=== PATIENT | female | born 1995 | race Caucasian/White ===

== ENCOUNTER 2017-01-19 08:00 | Outpatient (CLI) | payer MEDICAID | END 2017-01-19 08:01 | disposition home or self-care (01) | LOC: LAB.R 08:00 | PROVIDERS: ATTEND Obstetrics & Gynecology | DX: Z11.3 Encounter for screening for infections with a predominantly sexual mode of transmission (principal) | CPT/HCPCS: 87491; 87591 ==

== ENCOUNTER 2017-02-20 20:03 | Outpatient (CLI) | payer MEDICAID ==
--- NOTE | 2017-02-20 21:23 | Ultrasound Preliminary Report ---
Exam: US OB FIRST TRIMESTER IMPRESSION: 1. Single viable intrauterine at EGA 11 weeks 4 days with CHERELLE 09/07/2018 based on crown-rum p length. No acute findings are seen. RADIA The call report notification system was initiated by Dr. Tonya Aponte at 21:19 hrs on 02/20/17. The above findings were discussed with Dr Hugo Dr by Dr. Tonya Aponte at 21:21 hrs on 02/20/17. SITE ID: [id number]
--- NOTE | 2017-02-20 21:34 | Ultrasound Report ---
EXAM: FIRST TRIMESTER OBSTETRIC ULTRASOUND (Less than 11 weeks) EXAM DATE: 02/20/2017 08:51 PM. CLINICAL HISTORY: with inconclusive viability. Maternal care for abnormalities of fet al heart rate. HCG unknown. LMP: 11/19/2016, patient unsure about LMP, EGA 13 weeks 2 days, CHERELLE 08/26/2017. COMPARISONS: None. TECHNIQUE: Transabdominal and transvaginal ultrasound examination with static image documentation. FINDINGS: Gestational Sac: Single intrauterine. Mean gestational sac diameter: 60 mm = 12 weeks 1 day, CHERELLE . Embryo: CRL (crown-rump length) 49 mm = 11 weeks 4 days, CHERELLE 09/07/2017. Cardiac activity: 164 beats per minute. Yolk sac: 4 mm. Amniotic fluid: Subjectively within normal limits. Early placenta: Fundal placental location. Other: No perigestational fluid collection demonstrated. MATERNAL STRUCTURES: Uterus: Anteverted. Unremarkable. Cervix: Closed. Right Ovary/Adnexa: Unremarkable. The ovary measures 3.7 x 2.3 x 4 cm, volume 17.9 cc. Left Ovary/Adnexa: Unremarkable. The ovary measures 2.6 x 1.1 cm, not well seen. Free Fluid: None. IMPRESSION: 1. Single viable intrauterine at EGA 11 weeks 4 days with CHERELLE 09/07/2018 based on crown-rum p length. No acute findings are seen. DAVON The call report notification system was initiated by Dr. Tonya Aponte at 21:19 hrs on 02/20/17. The above findings were discussed with Dr Arias by Dr. Tonya Aponte at 21:21 hrs on 02/20/17. Referring Provider Line: [phone] SITE ID: [id number]
== END 2017-02-20 20:04 | disposition home or self-care (01) ==
LOC: DI 20:03
PROVIDERS: ATTEND Obstetrics & Gynecology
DX: O36.8310 Maternal care for abnormalities of the fetal heart rate or rhythm, first trimester, not applicable or unspecified (principal); Z3A.11 11 weeks gestation of pregnancy
CPT/HCPCS: 76801

== ENCOUNTER 2017-04-24 07:46 | Outpatient (CLI) | payer MEDICAID ==
--- NOTE | 2017-04-24 11:14 | Ultrasound Report ---
ANATOMIC SURVEY: 04/24/2017 CLINICAL INDICATION: anatomic survey. COMPARISON: OB Ultrasound 02/20/2017 TECHNIQUE: OB ultrasound anatomic survey. FINDINGS: Single viable intrauterine . LMP 12/01/2016. Gestational age by LMP 20 weeks 4 days, with estimated date of delivery 2017. biometry. BPD 4.9 cm 20 weeks 5 days. Head circumference 18.3 cm 20 weeks 5 days. Abdominal circumference 15.3 cm 20 weeks 3 days. Femur length 3.5 cm, 21 weeks 0 days. Estimated weight 370 grams. LMP percentile 51%. The following structures are visualized and have a normal appearance. Choroid plexus, lateral ventricles, midline falx, CSP, cisterna magna, cerebellum, nasal bone, coronal face, nose, lips, open hands, cardiac situs, 4 chamber heart, ventricular outflow tracts, stomach and situs, heart, stomach and bladder, diaphragm, kidneys, bladder, cord insertion, spine, upper extremities, lower extremities, leg-foot relationships. Maternal structures: Uterus and cervix unremarkable. Bilateral adnexa unremarkable. No free fluid. Placenta anterior without evidence of placenta previa. heart rate 154 beats per minute. IMPRESSION: 1. SINGLE VIABLE INTRAUTERINE WITH SIZE CONCORDANT WITH DATES. 2. NO ANOMALIES. TD: 04/24/2017 10:10 [facility]
== END 2017-04-24 07:47 | disposition home or self-care (01) ==
LOC: DI 07:46
PROVIDERS: ATTEND Obstetrics & Gynecology
DX: Z36.9 Encounter for antenatal screening, unspecified (principal)
CPT/HCPCS: 76811

== ENCOUNTER 2017-06-06 16:16 | Outpatient (CLI) | payer MEDICAID ==
[2017-06-06 16:49] LABS: HGB - HEMOGLOBIN 10.9 g/dL (12.0-16.0); MEAN PLATELET VOLUME 8.2 fL (7.9-10.8); RED BLOOD COUNT 3.52 10^6/uL (4.20-5.40); WHITE BLOOD COUNT 12.3 x10^3/uL (4.8-10.8)
== END 2017-06-06 16:17 | disposition home or self-care (01) ==
LOC: LAB 16:16
PROVIDERS: ATTEND Registered Nurse
DX: Z34.82 Encounter for supervision of other normal pregnancy, second trimester (principal)
CPT/HCPCS: 36415; 82950; 86850

== ENCOUNTER 2017-06-08 16:27 | Outpatient (CLI) | payer MEDICAID | END 2017-06-08 16:28 | disposition home or self-care (01) | LOC: LAB 16:27 | PROVIDERS: ATTEND Registered Nurse | DX: Z34.82 Encounter for supervision of other normal pregnancy, second trimester (principal) | CPT/HCPCS: 82950 ==

== ENCOUNTER 2017-08-04 15:30 | Outpatient (CLI) | payer MEDICAID | END 2017-08-04 15:31 | disposition home or self-care (01) | LOC: LAB.R 15:30 | PROVIDERS: ATTEND Nurse Practitioner Obstetrics & Gynecology | DX: Z36.85 Encounter for antenatal screening for Streptococcus B (principal) | CPT/HCPCS: 87081 ==

== ENCOUNTER 2017-09-09 19:54 | Inpatient (IN) | payer MEDICAID ==
[2017-09-09] MEDS ORDERED: SODIUM CHLORIDE FLUSH 0.9% 10 ML SYRINGE ONE (20:17)
[2017-09-09 21:18] LABS: BASOPHILS % (AUTO) 0.4 %; EOSINOPHILS # (AUTO) 0.1 10^3/uL (0.0-0.7); EOSINOPHILS % (AUTO) 0.6 %; HGB - HEMOGLOBIN 12.4 g/dL (12.0-16.0); LYMPHOCYTES # (AUTO) 1.7 10^3/uL (1.5-3.5); LYMPHOCYTES % (AUTO) 17.3 %; MEAN CORPUSCULAR HEMOGLOBIN 30.8 pg (27.0-31.0); MEAN CORPUSCULAR HGB CONC 33.2 g/dL (32.0-36.0); MEAN CORPUSCULAR VOLUME 92.9 fL (81.0-99.0); MEAN PLATELET VOLUME 9.4 fL (7.9-10.8); MONOCYTES # (AUTO) 0.9 10^3/uL (0.0-1.0); MONOCYTES % (AUTO) 9.3 %; NEUTROPHILS # (AUTO) 7.2 10^3/uL (1.5-6.6); NEUTROPHILS % (AUTO) 72.4 %; PLT - PLATELET COUNT 260 10^3/uL (130-450); RED BLOOD COUNT 4.02 10^6/uL (4.20-5.40); RED CELL DISTRIBUTION WIDTH 14.5 % (12.0-15.0); WHITE BLOOD COUNT 9.9 x10^3/uL (4.8-10.8)
[2017-09-09] MEDS ORDERED: fentaNYL 100 MCG/2 ML VIAL IVP PRN (21:20)
[2017-09-09] MEDS ORDERED: SODIUM CHLORIDE FLUSH 0.9% 10 ML SYRINGE IVP PRN (21:20)
--- NOTE | 2017-09-09 21:27 | HISTORY & PHYSICAL EXAMINATION ---
Admit History - Instructions [place]: -Left hand click circles element as positive or present. -Right hand click slashes element as negative or not present. - Visit Reason Visit Reason: Other - : 2 Parity: 0 Premature: 0 Ectopic: 0 : 1 Care: positive: [facility] Risk/History: positive: None Complications This : positive: None Smoking Status: Never smoker - Mother's Labs Mother's Blood Type: positive: O Mother's RH: positive: Positive GBS: positive: Group B Step Negative Rubella Status: positive: Non-immune Meds/Allgy - Home Medications Home Medications: Ambulatory Orders Medication Instructions Recorded Confirmed Ondansetron Odt [Zofran] 4 mg TL Q6H PRN #10 tablet 10/06/15 Hydrocodone/Acetaminophen [Vicodin 1 - 2 each PO Q6HR PRN #14 tablet 10/07/15 5-300 mg Tablet] - Allergies Allergies/Adverse Reactions: Allergies Allergy/AdvReac Type Severity Reaction Status Date / Time No Known Drug Allergies Allergy Verified 10/05/15 22:04 Physical - Abdominal Exam Uterine Resting Tone: positive: Soft - Monitoring Heart Rate Baseline: 140 Strip Review: positive: Category I - Presentation Presentation: positive: Vertex - Vaginal Exam Membranes: positive: Membranes intact Dilation (in cm): 1 Effacement (%): 25 Station: positive: -1 Cervical Position: positive: Posterior - Speculum Exam Speculum Exam Performed: positive: No Plan for Labor - Plan For Labor I expect patient to be DC'd or transferred within 96 hours.: Yes Plan for Labor: HPI: This 22yo @ 40.2wks gestation presents today for scheduled elective IOL secondary to maternal discomfort. She is feeling well. Anxious to have a baby. Feels she will be able to sleep well tonight. Mom, aunt, sister, and boyfriend supportive at the bedside. Denies VB, Lof, or contractions. +FM. Slightly nauseous. SVE 03/09/-1, posterior, vertex. Dating Criteria: LMP: unknown First ultrasound: 02/20/2017 - dating at 12.1wks gestation Serial exams: Serial Exams 16-39 weeks agree OB History: G1: 09/2015 - SAB G2: Current PMHx: Depression; Anxiety; Frequent UTIs; Asthma Social Hx: Never smoker; No ETOH or IVDA; FOB [place]. Surgical Hx: None BLOOD BANK SPECIALIST History: None Family Hx: No significant Physical Exam: Heart RRR w/o M/G/R Lungs CTAB Abdomen gravid, soft, nontender EFW 3400 grams Bilateral LE's 1+ edema labs: O pos, antibody neg Hgb 12.5, Hct 36.4, PLT 261 Rubella non-immune HIV non-reactive Hep B neg GC/CT neg RPR non-reactive 28 week labs: Hgb 10.9 1 hour GTT 114 Antibody negative GBS negative Ultrasounds: 12wk ultrasound inconsistent with LMP (unsure LMP). Fundal placenta. No previa. FAS WNL, anterior placenta, no previa. Size c/w dating. Assessment: 22yo presents for logistic IOL GBS negative Category I FHR Plan: Cervical ripening with 50mcg BC misoprostol q 4 hrs. Continuous monitoring. Reevaluate in am. Planning epidural for pain management in labor. Pt and FOB verbalized understanding and agrees to above plan. They deny further questions or concerns at this time.
[2017-09-09] MEDS: miSOPROStol 100 MCG TABLET BC SCH (21:47)
[2017-09-09] MEDS ORDERED: LACTATED RINGERS 1,000 ML IV SCH (22:00)
[2017-09-09] MEDS ORDERED: ZOLPIDEM 5 MG TABLET PO PRN (22:18)
[2017-09-10] MEDS: miSOPROStol 100 MCG TABLET BC SCH (01:45)
[2017-09-10] MEDS: SODIUM CHLORIDE FLUSH 0.9% 10 ML SYRINGE IVP SCH ×2 (02:38→12:41)
[2017-09-10] MEDS: ONDANSETRON 4 MG/2 ML VIAL IVP PRN ×3 (02:38→12:41)
[2017-09-10] MEDS ORDERED: TERBUTALINE 1 MG/ML VIAL SUBQ ONE (05:25)
--- NOTE | 2017-09-10 05:37 | PROVIDER PROGRESS NOTE ---
Labor Progress Note - Uterine Monitoring Uterine Monitoring Mode: positive: External toco Contraction Frequency (min/apart): irritability Contraction Intensity: positive: Mild Uterine Resting Tone: positive: Soft - Monitoring Monitor Mode: positive: External ultrasound Heart Rate Baseline: 130 Heart Rate Variability: positive: Minimal (0-5 bpm) Accelerations: positive: Absent Decelerations: positive: Late Strip Review: positive: Category II - Vaginal Exam Dilation (in cm): 1 Effacement (%): 75 Station: 1 Cervical Position: Posterior - Labor Progress Note Labor Progress Note/Additional Text: I was called to the bedside due to steep late deceleration. Upon my arrival FHR had returned to baseline with minimal variability due to recent administration of Fentanyl 50cmg IVP. Pt left side lying with O2. FOB sleeping at bedside. S: Patient laying on left side with O2 mask. She is feeling tired and desires a nap but is having a difficult time getting comfortable. Requests epidural but states she is nervous because she is afraid of needles. O: BP 129/82, HR 78, afebrile. SVE 1/75/+1, vertex, posterior, medium consistency. FHR baseline 140, minimal variability due to recent administration of Fentanyl 50mcg IVP. no accels at present, one late deceleration to 70bpm with return to baseline and no further decelerations. Contractions palpate mild- moderate with soft resting tone. Intermittent contractions/uterine irritability. A: 22yo @ 40.3 wks gestation by 12wk U/S Cervical ripening in anticipation for pitocin IOL FHT Category II - overall reassuring. P: Anesthesia at bedside to place epidural Continuous monitoring Plan AROM and titration of pitocin per protocol
[2017-09-10] MEDS ORDERED: fent/BUPIV 2 MCG/0.125% 250 ML EP ONE (05:50)
[2017-09-10] MEDS: LACTATED RINGERS 1,000 ML IV SCH ×3 (06:00→12:47)
--- NOTE | 2017-09-10 06:24 | PROVIDER PROGRESS NOTE ---
Labor Progress Note - Uterine Monitoring Uterine Monitoring Mode: positive: External toco Contraction Frequency (min/apart): irritability Contraction Intensity: positive: Mild to moderate Uterine Resting Tone: positive: Soft - Monitoring Monitor Mode: positive: External ultrasound Heart Rate Baseline: 140 Heart Rate Variability: positive: Moderate (6-25 bmp) Accelerations: positive: Absent Decelerations: positive: None Strip Review: positive: Category I - Labor Progress Note Labor Progress Note/Additional Text: S: Pt laying comfortably in bed with epidural in place. FOB supportive at the bedside. O: FHR baseline 140s, moderate variability, no accels, no decels. A: 22yo @ 40.3wks gestation by 12 wk U/S Misoprostol 50mcg BC q4 hrs for cervical ripening FHT Category I P: Continuous monitoring Plan AROM when patient is more comfortable with epidural Initiate pitocin with titration per protocol at that time. Pt verbalized understanding and agrees to above plan. Pt and FOB verbalized understanding and agree to above plan. They deny further questions or concerns at this time.
[2017-09-10] MEDS ORDERED: OXYTOCIN/SODIUM CHLORIDE 500 ML IV SCH (08:00)
[2017-09-10] MEDS: ACETAMINOPHEN 325 MG TABLET PO PRN ×3 (11:45→23:58)
--- NOTE | 2017-09-10 12:02 | PROVIDER PROGRESS NOTE ---
Labor Progress Note - Uterine Monitoring Uterine Monitoring Mode: positive: External toco Contraction Frequency (min/apart): 2-4 Contraction Intensity: positive: Moderate to strong Uterine Resting Tone: positive: Soft - Monitoring Monitor Mode: positive: External ultrasound Heart Rate Baseline: 130 Heart Rate Variability: positive: Moderate (6-25 bmp) Accelerations: positive: Present, 15x15 Decelerations: positive: Early Strip Review: positive: Category I - Vaginal Exam Dilation (in cm): 7 Effacement (%): 90 Station: 1 Cervical Position: Anterior - Labor Progress Note Labor Progress Note/Additional Text: S: Patient laying in bed comfortably on right side with epidural in an exaggerated side lying position. Reports she was able to sleep. Having a moderate headache and requesting Tylenol. Mood is good. FOB, Mom, and Aunt supportive at the bedside. O: BP 114/73, HR 73, afebrile. FHR baseline 135, minimal-moderate variability, no accels, early decels. Contractions palpate moderate-strong q 2-5 minutes with soft resting tone. SVE 7/90/+1, vertex, anterior, soft, ROT position. Pitocin @ 3 A: 22yo @ 40.3wks gestation by 12 wk U/S Pitocin IOL s/p Misoprostol 50mcg BC q4hrs x 2 doses AROM x 5.5hrs - afebrile FHT Category II - overall reassuring P: Continuous monitoring Continue titration of Pitocin per protocol Repeat SVE in 3 hours or sooner PRN.
[2017-09-10] MEDS ORDERED: OXYTOCIN/SODIUM CHLORIDE 250 ML IV ONE (15:26)
--- NOTE | 2017-09-10 15:47 | DELIVERY NOTE ---
Delivery Note - Labor Labor: positive: Augmented by ARM, Augmented by oxytocin, Other - Delivery Method Delivery Method: positive: Spontaneous vaginal delivery - Presentation Presentation: positive: Vertex, RUSS - left occiput anterior - Nuchal Cord Nuchal Cord: positive: None - Amniotic Fluid Description Amniotic Fluid Description: positive: Light meconium - Episiotomy Type Episiotomy Type: positive: None - Laceration Laceration: positive: 2nd degree - Suture Suture Type: positive: Vicryl Suture Size: positive: 2-0, 4-0 - Delivery Outcome Delivery Outcome: positive: Livebirth - [place] : positive: Placed in direct skin contact with mother, Bulb syringe, Stimulated, Warmed, [place] used sex: positive: Female - Cord Cord: positive: 3 vessels - Placenta Placenta: positive: Intact, Spontaneous - Estimated Blood Loss Estimated Blood Loss (in cc): 350 - Post Delivery Events Post Delivery Events: positive: No post delivery events - Delivery Comments (Free Text/Narrative) Delivery Comments (Free Text/Narrative): Labor: This 22yo @ 40.2wks gestation by 12 week U/S presented at 2000 @ 09/09/2017 for logistic IOL. Cervix was noted to be 1/25/-1, vertex, posterior. Cervical ripening with 50mcg misoprostol q4hrs x 2 doses. FHR pattern demonstrated Category II but overall reassuring. Normal labor course. Epidural placed upon maternal request. AROM occurred at 0650 on 09/10/2017 and was noted to be a moderate amount of clear fluid. Pt was augmented at this time with Pitocin for a max of 5. Pt progressed to c/c/+3 at 1347. : Normal of viable female infant at 1433 on 09/10/2017. No nuchal. 's were 7 and 9 at 1 and 5 min respectively. The umbilical cord was allowed to stop pulsating at which time it was doubly clamped at cut by FOB. Cord gases and cord blood were obtained. Cord ABGpH 7.147; Cord VBG pH7.181. The was placed on maternal abdomen, stimulated, dried and placed skin to skin. Placenta delivered spontaneously and intact at 1436. 3VC. Pitocin administered via IV for hemostasis. EBL 350mL. Fourth Stage: Uterine fundus firm and there is no excessive bleeding. The perineum, vagina, and cervix were inspected and found to have 2nd degree laceration. Vaginal laceration repaired with 2-[address]-1 needle and superficial perineal laceration repaired with a 4-0 vicryl on an SH needle in the usual fashion under sterile conditions. Vaginal and rectal examination following repair was done. Tissues well approximated. Scant vaginal bleeding. Fundus firm. initiated. Family bonding well. Both mother and baby were left in stable condition.
[2017-09-10] MEDS: IBUPROFEN 800 MG TABLET PO SCH ×2 (17:12→23:01)
[2017-09-10] MEDS: HYDROCORTISONE/PRAMOXINE 10 GM PR PRN ×3 (17:13→23:02)
[2017-09-10] MEDS: WITCH HAZEL/GLYCERIN 1 EACH MED..PAD TOP PRN ×2 (20:12→23:01)
[2017-09-10] MEDS: DOCUSATE SODIUM 100 MG CAPSULE PO SCH (20:48)
[2017-09-10] MEDS ORDERED: DOCUSATE SODIUM 100 MG CAPSULE PO SCH (21:00)
[2017-09-11] MEDS: ACETAMINOPHEN 325 MG TABLET PO PRN ×5 (04:20→22:26)
[2017-09-11] MEDS: IBUPROFEN 800 MG TABLET PO SCH ×4 (05:16→23:59)
[2017-09-11] MEDS: SODIUM CHLORIDE FLUSH 0.9% 10 ML SYRINGE IVP SCH ×3 (07:52→11:55)
[2017-09-11] MEDS: LACTATED RINGERS 1,000 ML IV SCH ×3 (07:52→11:55)
--- NOTE | 2017-09-11 10:07 | PROVIDER PROGRESS NOTE ---
Subjective - Subjective Subjective: S: Bonding well with baby. with little difficulty - baby latches well. Pt struggles with positioning infant to feed. Bleeding decreased and is light. Mild cramping with . Perineum comfortable. +BM soft. Mood is good. Overall feels well. FOB supportive at the bedside. O: BP 113/77, RR 16; HR 76; T 36.8 Heart RRR w/o M/G/R, lungs CTAB, abdomen soft and nontender with fundus firm at U-1. Bilateral LE's trace edema. Perineum intact with mild edema. Light lochia rubra. A: 22yo -->P1 s/p TSVD of viable female infant named Johnathan Second degree laceration P: Continue routine care and medications. support. Plan discharge home tomorrow. Objective - Vital Signs/Intake & Output Vital Signs: Vital Signs x48h Temp Pulse Resp BP 09/11/17 04:02 36.8 C 76 16 113/77 Intake & Output: Intake & Output 09/08/17 09/09/17 09/10/17 09/11/17 23:59 23:59 23:59 23:59 Intake Total 2078.333 200 Output Total 695 300 Balance 1383.333 -100 - Lab Results Fish Bones: 09/09/17 20:30
[2017-09-11] MEDS ORDERED: oxyCODONE 5 MG TABLET PO PRN (16:49)
[2017-09-11] MEDS: DOCUSATE SODIUM 100 MG CAPSULE PO SCH (21:03)
[2017-09-12] MEDS: ACETAMINOPHEN 325 MG TABLET PO PRN (03:00)
[2017-09-12] MEDS: IBUPROFEN 800 MG TABLET PO SCH ×3 (06:26→14:44)
[2017-09-12] MEDS: LACTATED RINGERS 1,000 ML IV SCH ×3 (08:38→14:46)
[2017-09-12] MEDS: SODIUM CHLORIDE FLUSH 0.9% 10 ML SYRINGE IVP SCH ×2 (08:38→11:57)
--- NOTE | 2017-09-12 11:17 | Discharge Plan ---
Discharge Plan Disposition: 01 Home, Self Care Condition: Good Diet: Regular Activity Restrictions: pelvic rest x6 weeks Shower Restrictions: No Driving Restrictions: No Weight Bearing: Full Weight Instruction Topics: Vaginal After, Breastfeed How To, Exercises [place] No Smoking: If you smoke, Please STOP! Call for help. Follow-up with: Amber Mcintyre CNM, HERNA[place] [Provider Admit Priv/Credential] -
[2017-09-12 11:57] VITALS: BP 121/67
[2017-09-12] MEDS ORDERED: MEASLES,MUMPS & RUBELLA VACC 0.5 ML VIAL SUBQ ONE (14:15)
[2017-09-12] MEDS: HYDROCORTISONE/PRAMOXINE 10 GM PR PRN (14:44)
[2017-09-12] MEDS: DOCUSATE SODIUM 100 MG CAPSULE PO SCH (14:46)
--- NOTE | 2017-09-14 10:43 | DISCHARGE SUMMARY ---
"Discharge Summary Admit Date: 09/10/17 Discharge Date: 09/12/17 Discharging Provider: kb Code Status: Attempt Resuscitation Condition at Discharge: Good Discharge Disposition: 01 Home, Self Care [facility]AGNOSES Admission Diagnoses: 40 weeks gestation Discharge Diagnoses with Status of Each Condition: - HPI History of Present Illness: Lois presented for induction of labor at term, elective. She received misoprostol & progressed steadily to complete dilatation. She delivered a viable female vaginally w/o complication or laceration - CONSULTS | PROCEDURES Procedures: epidural placement - HOSPITAL COURSE Hospital Course: , Lois is doing well. She is ambulating & voiding w/o difficulty. She is passing flatus & tolerating a regular diet. Her pain is well-managed. She has minimal lochia rubra. She is well w/ excellent latch. She has excellent social support. She is able to fully articulate pp warning s/ sx, including pp depression s/sx, and pp aftercare instructions. She is ready to leave the hospital. - ALLERGIES Allergies/Adverse Reactions: Allergies Allergy/AdvReac Type Severity Reaction Status Date / Time No Known Drug Allergies Allergy Verified 10/05/15 22:04 - MEDICATIONS Home Medications: Ambulatory Orders Medication Instructions Recorded Confirmed Acetaminophen [Tylenol] 650 mg PO Q4HR PRN tablet 09/12/17 Ibuprofen [Motrin] 800 mg PO Q6H tablet 09/12/17 - PHYSICAL EXAM AT DISCHARGE General Appearance: positive: No acute distress, Alert Eyes Bilateral: positive: Normal inspection, PERRL, EOMI Respiratory: positive: Chest non-tender, No respiratory distress, Breath sounds nml Cardiovascular: positive: Regular rate & rhythm, No murmur Abdomen: positive: Non-tender, No distention, Other (FF U-2) Skin: positive: Color nml, No rash, Warm, Dry Extremities: positive: Non-tender, Full ROM, Nml appearance, No pedal edema. negative: Calf tenderness, Erin's sign/cords Neurologic/Psychiatric: positive: Oriented x3, CN's nml (2-12), Motor nml, Sensation nml, Mood/affect nml - LABS Result Diagrams: 09/09/17 20:30 - FOLLOW UP Follow Up: x1 week w/ Amber Mcintyre CNM; earlier PRN - TIME SPENT Time Spent in Discharge (Minutes): 20"
== END 2017-09-12 15:10 | disposition home or self-care (01) | DRG 775 ==
LOC: WFO 19:54 → FBP 19:57 → WFO 22:44 → OBSVTOIN 09-10 07:06
PROVIDERS: ADMIT Nurse Practitioner Obstetrics & Gynecology; ATTEND Registered Nurse
PROC: 10E0XZZ Delivery of Products of Conception, External Approach (ICD-10-PCS; principal; 2017-09-10)
PROC: 0KQM0ZZ Repair Perineum Muscle, Open Approach (ICD-10-PCS; 2017-09-10)
PROC: 10907ZC Drainage of Amniotic Fluid, Therapeutic from Products of Conception, Via Natural or Artificial Opening (ICD-10-PCS; 2017-09-10)
DX: O70.1 Second degree perineal laceration during delivery (principal); Z37.0 Single live birth; O77.0 Labor and delivery complicated by meconium in amniotic fluid; Z3A.40 40 weeks gestation of pregnancy; Z86.59 Personal history of other mental and behavioral disorders; Z87.09 Personal history of other diseases of the respiratory system; Z87.440 Personal history of urinary (tract) infections
CPT/HCPCS: 85025; 96361; 96374; 96375

== ENCOUNTER 2018-04-03 18:33 | Emergency (ER) | payer MEDICAID ==
[2018-04-03 18:49] VITALS: BP 123/79
--- NOTE | 2018-04-03 21:19 | ED Physician Documentation ---
PD HPI ABD PAIN - Stated complaint Stated Complaint: RECTAL BLEEDING - Chief complaint Chief Complaint: Abd Pain - History obtained from History obtained from: Patient, Family (mom) - History of Present Illness Timing - onset: Other (For many years she has had intermittent rectal bleeding. Saw a GI MD at age 18 and cscope was being considered but never done. Worse over the last few weeks with increased bleeding. No weight loss.) Review of Systems Constitutional: denies: Fever, Chills, Myalgias, Fatigue, Weight Loss GI: reports: Abdominal Pain (some vishnu with stooling.). denies: Nausea, Vomiting, Constipation, Diarrhea PD PAST MEDICAL HISTORY - Past Medical History Cardiovascular: None Respiratory: Asthma Endocrine/Autoimmune: None GI: None PERINATOLOGY PHYSICIAN: None : None HEENT: None Psych: None Musculoskeletal: None Derm: None - Past Surgical History Past Surgical History: Yes HEENT: Other - Present Medications Home Medications: Ambulatory Orders Medication Instructions Recorded Confirmed Acetaminophen [Tylenol] 650 mg PO Q4HR PRN tablet 09/12/17 Ibuprofen [Motrin] 800 mg PO Q6H tablet 09/12/17 - Allergies Allergies/Adverse Reactions: Allergies Allergy/AdvReac Type Severity Reaction Status Date / Time No Known Drug Allergies Allergy Verified 10/05/15 22:04 - Social History Does the pt smoke?: No Smoking Status: Never smoker Does the pt drink ETOH?: No Does the pt have substance abuse?: No - Immunizations Immunizations are current?: Yes - POLST Patient has POLST: No PD ED PE NORMAL - Vitals Vital signs reviewed: Yes - General General: Alert and oriented X 3, No acute distress - Abdomen Abdomen: Soft, Non tender - Female Female : Other (Exam only of the external rectum with Colleen tech Chaperoning. No external hemorrhoid or fissure.) - Back Back: No CVA TTP, No spinal TTP - Psych Psych: Normal mood, Normal affect Results - Vitals Vitals: Vital Signs - 24 hr 04/03/18 18:47 Temperature 36.8 C Heart Rate 88 Respiratory 16 Rate Blood Pressure 123/79 O2 Saturation 99 Oxygen O2 Source Room air - Labs Labs: Laboratory Tests 04/03/18 04/03/18 21:26 21:26 WBC 6.3 RBC 4.39 Hgb 13.2 Hct 39.6 MCV 90.2 MCH 30.0 MCHC 33.2 RDW 13.3 Plt Count 292 MPV 7.4 L Neut # (Auto) 3.3 Lymph # (Auto) 2.3 Parke # (Auto) 0.5 Eos # (Auto) 0.2 Baso # (Auto) 0.0 Absolute Nucleated RBC 0.00 Nucleated RBC % 0.0 Sodium 138 Potassium 3.7 Chloride 104 Carbon Dioxide 27 Anion Gap 7.0 BUN 13 Creatinine 0.5 Estimated GFR (MDRD) 156 Glucose 85 Calcium 9.1 Total Bilirubin 1.1 H AST 15 ALT 16 Alkaline Phosphatase 68 Total Protein 8.1 Albumin 4.7 Globulin 3.4 Albumin/Globulin Ratio 1.4 Lipase 33 PD MEDICAL DECISION MAKING - ED course ED course: 23-year-old with long-standing rectal bleeding in a pattern most consistent with inflammatory bowel disease. We will check labs and if benign she needs outpatient follow-up and likely colonoscopy with biopsies. Departure - Departure Disposition: 01 Home, Self Care Clinical Impression: Rectal bleeding Condition: Good Record reviewed to determine appropriate education?: Yes Instructions: ED Hematochezia Stable Follow-Up: Pancho White MD [Provider Admit Priv/Credential] - Comments: As discussed your labs look fine but the pattern of the bleeding is concerning for inflammatory bowel disease such as Crohn's or ulcerative colitis. For definitive diagnosis she will need a colonoscopy. Follow-up with Dr. White listed on this form or 1 of his partners for evaluation and likely scheduling for colonoscopy. Return for new or worsening symptoms.
[2018-04-03 21:41] LABS: BASOPHILS % (AUTO) 0.6 %; EOSINOPHILS # (AUTO) 0.2 10^3/uL (0.0-0.7); EOSINOPHILS % (AUTO) 2.4 %; HGB - HEMOGLOBIN 13.2 g/dL (12.0-16.0); LYMPHOCYTES # (AUTO) 2.3 10^3/uL (1.5-3.5); LYMPHOCYTES % (AUTO) 36.5 %; MEAN CORPUSCULAR HGB CONC 33.2 g/dL (32.0-36.0); MEAN CORPUSCULAR VOLUME 90.2 fL (81.0-99.0); MEAN PLATELET VOLUME 7.4 fL (7.9-10.8); MONOCYTES # (AUTO) 0.5 10^3/uL (0.0-1.0); MONOCYTES % (AUTO) 7.8 %; NEUTROPHILS # (AUTO) 3.3 10^3/uL (1.5-6.6); NEUTROPHILS % (AUTO) 52.7 %; PLT - PLATELET COUNT 292 10^3/uL (130-450); RED BLOOD COUNT 4.39 10^6/uL (4.20-5.40); RED CELL DISTRIBUTION WIDTH 13.3 % (12.0-15.0); WHITE BLOOD COUNT 6.3 x10^3/uL (4.8-10.8)
[2018-04-03 21:45] LABS: ALBUMIN 4.7 g/dL (3.2-5.5); ALBUMIN/GLOBULIN RATIO 1.4 (1.0-2.2); BILIRUBIN,TOTAL 1.1 mg/dL (0.2-1.0); CALCIUM 9.1 mg/dL (8.5-10.3); CREATININE 0.5 mg/dL (0.4-1.0); TOTAL PROTEIN 8.1 g/dL (6.7-8.2)
== END 2018-04-03 22:15 | disposition home or self-care (01) ==
LOC: ED 18:33
DX: K62.5 Hemorrhage of anus and rectum (principal)
CPT/HCPCS: 36415; 80053; 83690; 85025; 99283

== ENCOUNTER 2018-04-19 11:23 | Day surgery (SDC) | payer MEDICAID ==
[~2018-04-19 11:23] MED LIST: MIDAZOLAM 2 MG/2 ML VIAL IVP ONE; fentaNYL 250 MCG/5 ML VIAL IVP ONE
[2018-04-19] MEDS ORDERED: LACTATED RINGERS 1,000 ML IV ONE ×2 (12:15→13:50)
[2018-04-19 12:34] LABS: HCG UR QUAL NEGATIVE
[2018-04-19] MEDS ORDERED: ONDANSETRON ODT 4 MG TABLET ONE (14:38)
[2018-04-19 15:01] VITALS: BP 96/60
== END 2018-04-19 11:24 | disposition home or self-care (01) ==
LOC: SDS 11:23
PROVIDERS: ATTEND Internal Medicine Gastroenterology
PROC: 0DJD8ZZ Inspection of Lower Intestinal Tract, Via Natural or Artificial Opening Endoscopic (ICD-10-PCS; principal; 2018-04-19 13:00)
DX: K62.5 Hemorrhage of anus and rectum (principal); K64.8 Other hemorrhoids; N93.9 Abnormal uterine and vaginal bleeding, unspecified
CPT/HCPCS: 45378; 81025; J7120; Q0162

== ENCOUNTER 2020-02-13 16:52 | Outpatient (CLI) | payer MEDICAID ==
[2020-02-13 22:43] LABS: TRICHOMONAS VAGINALIS DNA NEGATIVE (NEGATIVE)
[2020-02-13 23:24] LABS: CANDIDA GROUP DNA NEGATIVE (NEGATIVE); CANDIDA KRUSEI DNA NEGATIVE (NEGATIVE); TRICHOMONAS VAGINALIS DNA NEGATIVE (NEGATIVE)
== END 2020-02-13 23:59 | disposition home or self-care (01) ==
LOC: LAB.N 16:52
PROVIDERS: ATTEND Family Medicine
DX: N76.0 Acute vaginitis (principal)
CPT/HCPCS: 87491; 87591; 87661; 87801

== ENCOUNTER 2020-03-30 08:00 | Outpatient (CLI) | payer MEDICAID ==
[2020-03-31 10:04] LABS: MUDS CUTOFF CONCENTRATIONS CUTOFF CONC BELOW:
[2020-03-31 10:16] LABS: BILIRUBIN,URINE NEGATIVE (NEGATIVE); GLUCOSE, URINE (UA) NEGATIVE (NEGATIVE); KETONES,URINE (UA) NEGATIVE (NEGATIVE); LEUKOCYTE ESTERASE, URINE NEGATIVE (NEGATIVE); NITRITE,URINE NEGATIVE (NEGATIVE); OCCULT BLOOD,URINE NEGATIVE (NEGATIVE); PH,URINE 6.5 PH (5.0-7.5); PROTEIN,URINE NEGATIVE (NEGATIVE); UROBILINOGEN,URINE 0.2 (NORMAL) E.U./dL (NORMAL)
[2020-03-31 10:17] LABS: CLARITY,URINE CLOUDY (CLEAR)
[2020-03-31 10:18] LABS: AMPHETAMINE SCREEN,URINE NEGATIVE (NEGATIVE); BENZODIAZEPINES SCREEN, URINE NEGATIVE (NEGATIVE); COCAINE SCREEN URINE NEGATIVE (NEGATIVE); METHADONE SCREEN, URINE NEGATIVE (NEGATIVE); METHAMPHETAMINES SCREEN, URINE NEGATIVE (NEGATIVE); OPIATE SCREEN, URINE NEGATIVE (NEGATIVE); OXYCODONE SCREEN, URINE NEGATIVE (NEGATIVE); PROPOXYPHENE SCREEN, URINE NEGATIVE (NEGATIVE); TRICYCLIC ANTIDEPRESSANT,URINE NEGATIVE (NEGATIVE)
[2020-03-31 10:34] LABS: BACTERIA,URINE Few /HPF (None Seen); RBC,URINE 0-5 /HPF (0-5); SQUAMOUS EPITHELIAL CELL,UR RARE Squamous (<= Few)
[2020-03-31 10:36] LABS: AMORPHOUS SEDIMENT,UR Marked /LPF
== END 2020-03-30 08:01 | disposition home or self-care (01) ==
LOC: LAB.R 08:00
PROVIDERS: ATTEND Advanced Practice Midwife
DX: Z32.01 Encounter for pregnancy test, result positive (principal)
CPT/HCPCS: 80306; 81001; 87086

== ENCOUNTER 2020-04-08 16:50 | Outpatient (CLI) | payer MEDICAID ==
--- NOTE | 2020-04-08 19:19 | Ultrasound Report ---
PROCEDURE: OB First Trimester w/TV INDICATIONS: POSITIVE TEST OUTSIDE/PRIOR DATING DATA: Last menstrual period (LMP): Unknown. LMP-based estimated date of delivery (CHERELLE): Unknown. First dating scan (date and location): 04/08/2020. Estimated date of delivery (CHERELLE) from first dating scan: 11/27/2020. TECHNIQUE: Real-time scanning was performed of the fetus and maternal pelvic organs, with image documentation. Endovaginal scanning was also performed to better visualize the fetus and maternal ovaries. COMPARISON: None FINDINGS: Embryo: Single live intrauterine with crown-rump length measuring 0.8 cm coarse 9-6 weeks 5 days. heart rate is 130 beats per minutes. Small focus of subchorionic hemorrhage is present measuring 16 x 19 x 23 mm. Measurement variability in dating: +/- 4 weeks by LMP, +/- 7 days by mean sac diameter (use before 6 weeks gestation if crown-rump length not able to be measured), +/- 5 days by crown-rump length (6-12 weeks gestation). Maternal organs: Ovaries demonstrate a left corpus luteal cyst. IMPRESSION: 1. Single live anterior with ultrasound gestational age of 6 weeks 5 days corresponding to ultrasound CHERELLE of 11/29/2020. 2. Recommend follow-up imaging at 20-22 weeks for dates and anatomy. Reviewed by: Gogo Pradhan MD on 04/08/2020 6:17 PM [facility] Approved by: Gogo Pradhan MD on 04/08/2020 6:17 PM [facility] Station ID: [id number]
== END 2020-04-08 16:51 | disposition home or self-care (01) ==
LOC: DI 16:50
PROVIDERS: ATTEND Advanced Practice Midwife
DX: Z32.01 Encounter for pregnancy test, result positive (principal)

== ENCOUNTER 2020-04-28 07:00 | Outpatient (CLI) | payer MEDICAID ==
[2020-04-28 21:48] LABS: CHLAMYDIA TRACHOMATIS DNA NEGATIVE (NEGATIVE); NEISSERIA GONORRHOEAE DNA NEGATIVE (NEGATIVE); TRICHOMONAS VAGINALIS DNA NEGATIVE (NEGATIVE)
== END 2020-04-28 23:59 | disposition home or self-care (01) ==
LOC: LAB.R 07:00
PROVIDERS: ATTEND Nurse Practitioner Obstetrics & Gynecology
DX: Z11.3 Encounter for screening for infections with a predominantly sexual mode of transmission (principal)
CPT/HCPCS: 87491; 87591; 87661

== ENCOUNTER 2020-06-01 10:58 | Outpatient (CLI) | payer MEDICAID ==
[2020-06-01 11:34] LABS: BASOPHILS % (AUTO) 0.3 %; EOSINOPHILS # (AUTO) 0.1 10^3/uL (0.0-0.7); EOSINOPHILS % (AUTO) 1.9 %; HCT - HEMATOCRIT 35.3 % (37.0-47.0); HGB - HEMOGLOBIN 11.8 g/dL (12.0-16.0); LYMPHOCYTES # (AUTO) 1.8 10^3/uL (1.5-3.5); LYMPHOCYTES % (AUTO) 23.5 %; MEAN CORPUSCULAR HEMOGLOBIN 30.9 pg (27.0-31.0); MEAN CORPUSCULAR HGB CONC 33.4 g/dL (32.0-36.0); MEAN CORPUSCULAR VOLUME 92.4 fL (81.0-99.0); MEAN PLATELET VOLUME 9.6 fL (7.9-10.8); MONOCYTES # (AUTO) 0.4 10^3/uL (0.0-1.0); MONOCYTES % (AUTO) 5.9 %; NEUTROPHILS # (AUTO) 5.1 10^3/uL (1.5-6.6); NEUTROPHILS % (AUTO) 68.1 %; PLT - PLATELET COUNT 253 10^3/uL (130-450); RED BLOOD COUNT 3.82 10^6/uL (4.20-5.40); RED CELL DISTRIBUTION WIDTH 12.5 % (12.0-15.0); WHITE BLOOD COUNT 7.5 x10^3/uL (4.8-10.8)
[2020-06-02 12:47] LABS: HEPATITIS C ANTIBODY NON-REACTIVE (NON-REACTIVE)
[2020-06-02 12:48] LABS: HEPATITIS B SURFACE ANTIGEN NON-REACTIVE (NON-REACTIVE)
[2020-06-02 16:07] LABS: HIV AG/AB 4TH GEN NON-REACTIVE (NON-REACTIVE)
== END 2020-06-01 10:59 | disposition home or self-care (01) ==
LOC: LAB 10:58
PROVIDERS: ATTEND Nurse Practitioner Obstetrics & Gynecology
DX: Z36.89 Encounter for other specified antenatal screening (principal)
CPT/HCPCS: 36415; 85025; 86592; 86762; 86787; 86803; 86850; 86900; 86901; 87340; 87389

== ENCOUNTER 2020-06-15 08:00 | Outpatient (CLI) | payer MEDICAID ==
[2020-06-15 22:00] LABS: BACTERIAL VAGINOSIS DNA NEGATIVE (NEGATIVE); CANDIDA GLABRATA DNA NEGATIVE (NEGATIVE); CANDIDA GROUP DNA POSITIVE (NEGATIVE); CANDIDA KRUSEI DNA NEGATIVE (NEGATIVE); TRICHOMONAS VAGINALIS DNA NEGATIVE (NEGATIVE)
[2020-06-16 00:27] LABS: CHLAMYDIA TRACHOMATIS DNA NEGATIVE (NEGATIVE); NEISSERIA GONORRHOEAE DNA NEGATIVE (NEGATIVE); TRICHOMONAS VAGINALIS DNA NEGATIVE (NEGATIVE)
== END 2020-06-15 23:59 | disposition home or self-care (01) ==
LOC: LAB.N 08:00
PROVIDERS: ATTEND Nurse Practitioner
DX: O99.891 Other specified diseases and conditions complicating pregnancy (principal); N89.8 Other specified noninflammatory disorders of vagina; Z36.8A Encounter for antenatal screening for other genetic defects
CPT/HCPCS: 87491; 87591; 87661; 87801

== ENCOUNTER 2020-06-15 15:13 | Outpatient (CLI) | payer MEDICAID | END 2020-06-15 15:14 | disposition home or self-care (01) | LOC: LAB.N 15:13 | PROVIDERS: ATTEND Advanced Practice Midwife | DX: Z36.8A Encounter for antenatal screening for other genetic defects (principal) ==

== ENCOUNTER 2020-06-29 15:49 | Outpatient (CLI) | payer MEDICAID ==
[2020-06-30 12:10] LABS: AFP MOM 1.24; AGE RISK DOWN SYNDROME 1 IN 1103; CALC'D GESTATIONAL AGE 18.1 weeks; CIGARETTE SMOKER? NOT GIVEN; DONOR AGE: EGG RETRIEVAL NOT GIVEN; DONOR EGG NO; ESTRIOL MOM 1.12; HX OF NEURAL TUBE DEFECTS NO; INHIBIN A MOM 0.97; INSULIN DEPEND DIABETIC NO; MATERNAL WEIGHT 143 lbs; MSS DOWN SYNDROME RISK <1 IN 5000; MSS3 TRISOMY 18 RISK <1 IN 5000; NUMBER OF FETUSES 1; PREV PREGNANCY DOWN SYND NO; RISK FOR ONTD <1 IN 5000
== END 2020-06-29 15:50 | disposition home or self-care (01) ==
LOC: LAB 15:49
PROVIDERS: ATTEND Advanced Practice Midwife
DX: Z34.90 Encounter for supervision of normal pregnancy, unspecified, unspecified trimester (principal); Z36.8A Encounter for antenatal screening for other genetic defects
CPT/HCPCS: 36415; 81511

== ENCOUNTER 2020-07-14 15:31 | Outpatient (CLI) | payer MEDICAID ==
--- NOTE | 2020-07-15 18:22 | Ultrasound Report ---
PROCEDURE: OB Detailed Eval INDICATIONS: SUPERVISION OF OUTSIDE/PRIOR DATING DATA: Last menstrual period (LMP): 02/14/2020? LMP-based estimated date of delivery (CHERELLE): 11/20/2020. First dating scan (date and location): 04/08/2020. Estimated date of delivery (CHERELLE) from first dating scan: 11/27/2020. The below data below was generated using the clinical CHERELLE of 11/27/2020 TECHNIQUE: Real-time scanning was performed of the fetus, with image documentation and biometric measurements. Endovaginal scanning: Not performed. COMPARISON: 04/08/2020 FINDINGS: General: A single living intrauterine gestation is present. Presentation: Variable Placenta: Placental position is anterior, without previa. Placental lakes noted. Amniotic fluid index: 16.8 cm, normal for gestational age. Greater than 50 percentile. Largest pock et 5.4 cm. heart rate: 155 beats per minute. Maternal cervical canal: 4.9 cm long; normal length is 2.5 cm or more. No funneling. Mucous plug. biometrics: Biparietal diameter: 5.1 cm, 21 weeks 3 days Head circumference: 18.9 cm, 21 weeks 1 day Abdominal circumference: 16.4 cm, 21 weeks 3 days Femur length: 3.6 cm, 21 weeks 2 days Estimated gestational age from initial scan: 20 weeks 4 days Composite gestational age from present scan: 21 weeks 1 day Estimated weight and percentile: 416 g, 85th percentile Measurement variability in biometric dating: +/- 10 days from 12-20 weeks gestation, +/- 2 weeks from 20-30 weeks gestation, +/- 3 weeks at 30 weeks gestation or later. Anatomic survey: Neuro: Ventricles are normal at less than 10 mm. Cisterna magna is normal at 3-11 mm. Cerebellum i s normal in size and morphology. Nuchal skin fold: Normal at less than 6 mm between 14 and 20 weeks gestational age. Face: Nose and lips are normal. Profile is suboptimally visualized but appears normal. Nasal bone is seen. Spine: No evidence for spina bifida. Heart: 4-chambered heart is present, with normal ventricular outflow tracts. Diaphragm: Diaphragm is intact. Stomach: Left-sided stomach is present. Kidneys: No hydronephrosis. Normal is less than 5 mm in 2nd trimester, less than 7 mm in 3rd trimester. Cord: 3 vessel cord has orthotopic insertion. Bladder: Normal in size. Extremities: All 4 extremities are visualized. IMPRESSION: 1. Nair living intrauterine at 21 weeks 1 day based on today's ultrasound. This is con cordant with the first trimester ultrasound. There is expected interval growth. 2. Normal placenta and amniotic fluid. 3. Normal and complete anatomic survey. Profile is suboptimally visualized but appears normal. Reviewed by: Gonsalo Bowen MD on 07/15/2020 6:20 PM PDT Approved by: Gonsalo Bowen MD on 07/15/2020 6:20 PM PDT Station ID: [id number]
== END 2020-07-14 15:32 | disposition home or self-care (01) ==
LOC: DI 15:31
PROVIDERS: ATTEND Advanced Practice Midwife
DX: Z34.92 Encounter for supervision of normal pregnancy, unspecified, second trimester (principal)

== ENCOUNTER 2020-09-16 08:53 | Outpatient (CLI) | payer MEDICAID ==
[2020-09-16 10:31] LABS: HCT - HEMATOCRIT 34.2 % (37.0-47.0); HGB - HEMOGLOBIN 11.3 g/dL (12.0-16.0); MEAN CORPUSCULAR HEMOGLOBIN 32.7 pg (27.0-31.0); MEAN CORPUSCULAR VOLUME 98.8 fL (81.0-99.0); MEAN PLATELET VOLUME 9.3 fL (7.9-10.8); RED BLOOD COUNT 3.46 10^6/uL (4.20-5.40); RED CELL DISTRIBUTION WIDTH 13.1 % (12.0-15.0); WHITE BLOOD COUNT 9.6 x10^3/uL (4.8-10.8)
== END 2020-09-16 08:54 | disposition home or self-care (01) ==
LOC: LAB 08:53
PROVIDERS: ATTEND Nurse Practitioner Obstetrics & Gynecology
DX: Z34.90 Encounter for supervision of normal pregnancy, unspecified, unspecified trimester (principal); Z36.89 Encounter for other specified antenatal screening
CPT/HCPCS: 36415; 82950; 85027

== ENCOUNTER 2020-11-04 08:00 | Outpatient (CLI) | payer MEDICAID | END 2020-11-04 23:59 | disposition home or self-care (01) | LOC: LAB.WC 08:00 | PROVIDERS: ATTEND Nurse Practitioner Obstetrics & Gynecology | DX: Z36.85 Encounter for antenatal screening for Streptococcus B (principal) | CPT/HCPCS: 87797 ==

== ENCOUNTER 2020-11-24 11:47 | Inpatient (IN) | payer MEDICAID ==
[2020-11-24] MEDS ORDERED: OXYTOCIN/SODIUM CHLORIDE 500 ML IV PRN (12:16)
[2020-11-24] MEDS ORDERED: ONDANSETRON 4 MG/2 ML VIAL IVP PRN ×2 (12:16→15:20)
[2020-11-24] MEDS ORDERED: miSOPROStoL 200 MCG TABLET BC PRN (12:16)
[2020-11-24] MEDS ORDERED: TRANEXAMIC ACID IN NACL 1,000 MG/100 ML BAG IV PRN (12:16)
[2020-11-24] MEDS ORDERED: CARBOPROST TROMETHAMINE 250 MCG/ML AMP IM PRN (12:16)
[2020-11-24] MEDS ORDERED: LIDOCAINE-MPF 1% 30 ML VIAL ID PRN (12:16)
[2020-11-24] MEDS ORDERED: METHYLERGONOVINE 0.2 MG/ML VIAL IM PRN (12:16)
[2020-11-24] MEDS ORDERED: OXYTOCIN 10 UNIT/ML VIAL IM PRN (12:16)
[2020-11-24] MEDS: SODIUM CHLORIDE FLUSH 0.9% 10 ML SYRINGE IVP PRN ×2 (12:30→14:00)
--- NOTE | 2020-11-24 12:31 | HISTORY & PHYSICAL EXAMINATION ---
Admit History - Visit Reason Visit Reason: Membranes rupture - : 3 Parity: 1 Premature: 0 Ectopic: 0 : 1 Care: positive: [facility] Risk/History: positive: None Complications This : positive: None Smoking Status: Never smoker - Mother's Labs Mother's Blood Type: positive: O Mother's RH: positive: Positive GBS: positive: Group B Step Negative Rubella Status: positive: Immune Meds/Allgy - Home Medications Home Medications: Ambulatory Orders Medication Instructions Recorded Confirmed Ibuprofen [Motrin] 800 mg PO Q6H PRN 04/18/18 04/19/18 - Allergies Allergies/Adverse Reactions: Allergies Allergy/AdvReac Type Severity Reaction Status Date / Time No Known Drug Allergies Allergy Verified 10/05/15 22:04 Review of Systems - Constitutional Constitutional: denies: Fatigue, Fever, Chills, Malaise - Eyes Eyes: denies: Blurred vision, Spots in vision, Dipolpia - Cardiovascular Cariovascular: denies: Irregular heart rate, Chest pain, Edema - Respiratory Respiratory: denies: Cough, SOB at rest - Gastrointestinal Gastrointestinal: denies: Constipation, Diarrhea, Change in bowel habits - Integumentary Integumentary: denies: Rash, Pruritis - Neurological Neurological: denies: Headache Physical - Abdominal Exam Vital Signs: Temp Pulse Resp BP Pulse Ox 37.1 C 83 17 119/66 99 11/24/20 11:57 11/24/20 11:57 11/24/20 11:57 11/24/20 11:57 11/24/20 11:57 Contraction Frequency (min/apart): intermittent Contraction Intensity: positive: Mild Uterine Resting Tone: positive: Soft - Monitoring Heart Rate Baseline: 140 Strip Review: positive: Category I - Presentation Presentation: positive: Vertex - Vaginal Exam Membranes: positive: Membranes ruptured Dilation (in cm): 3 Effacement (%): 75 Station: positive: -3 Cervical Position: positive: Midposition - Speculum Exam Speculum Exam Performed: positive: No Findings: positive: Gross leak Plan for Labor - Plan For Labor I expect patient to be DC'd or transferred within 96 hours.: Yes Plan for Labor: Lois is a 25yo @ 39.1wks gestation by 6.5wk U/S not consistent with LMP dating (unsure LMP) who presents today to [facility] with c/o large gush of clear vaginal fluid at 1015 today. She denies vaginal bleeding or contractions. She reports +FM. She is noted to grossly leak clear fluid from the vagina and her nitrizine is positive. She has been a patient of [facility] through the duration of her which has remained uncomplicated. She is noted to be non-immune to varicella and is encouraged to obtain vaccination . She is GBS negative. She will be admitted to [facility] for active management secondary to term PROM. Dating criteria: LMP 02/14/2020 (unsure) Initial U/S @ 6.5wks dates with CHERELLE 11/29/2020 Serial exams - agree OB Hx: G1: 09/2015 SAB G2: 09/10/2017 @ 40.0wks, epidural, female G3: Current Medications: PNV; Zofran PRN, Reglan PRN Allergies: NKDA PMHx: Rectocele PSHx: Hemangioma left nasal - removed 1998 Family Hx: DM- MGM; CAD- MGM; Seizure disorder - brother; anxiety - mom; cervical cancer - MGM Social Hx: Never smoker, no ETOH or IVDA. Partner Etienne. She is a stay at home mom. course: LMP 02/14/2020 (unsure secondary to irregular menses) - CHERELLE by LMP 11/20/2020 Initial US: at 6.5wks not c/w LMP (11/20/2020) for FINAL CHERELLE 11/29/2020 O pos/Rubella immune VZV: non immune vax pp Genetic testing: Quad Neg FAS: WNL. Anterior placenta, no previa. 3VC. Size c/w dating (EFW 85%tile Glucola-86 Influenza: Received 11/10/20 COVID vaccine - considering, possibly . Education provided. TDAP 09/01/2020 GBS: negative @36.3 (11/04) HSV: denies in self and partner Breast pump Rx provided MOD: Anticipate . Has 3yo daughter Johnathan at home. BOY: Jeronimo pp contraception: POPs pap: Thinks she had a pap in 2017 which was WNL (no record). Desires to complete pap . Physical Exam: Normocephalic, atraumatic Heart RRR w/o M/G/R Lungs CTAB Abdomen gravid, soft, nontender FHR baseline 140, + accels, no decels Contractions palpate mild, intermittently SVE 3/75/-3, midposition, soft. Vertex. Gross leakage of clear vaginal fluid with +nitrizine Bilateral LE's trace edema Mood is good Assessment: 25yo @ 39.5wks gestation by 6.5wk U/S PROM GBS neg FHR Category I Plan: Admit for active management. Initiate pitocin for labor augmentation with titration per protocol Continuous monitoring. Encouraged ambulation and position changes. Nitrous oxide PRN. Jacuzzi PRN. Epidural per maternal request. Anticipate . Pt verbalized understandinga nd agrees to above plan. She denies further questions or concerns at this time.
[2020-11-24] MEDS ORDERED: fentaNYL 100 MCG/2 ML VIAL IVP SCH (12:40)
[2020-11-24 12:54] LABS: BASOPHILS % (AUTO) 0.3 %; EOSINOPHILS # (AUTO) 0.1 10^3/uL (0.0-0.7); EOSINOPHILS % (AUTO) 0.8 %; HCT - HEMATOCRIT 34.9 % (37.0-47.0); HGB - HEMOGLOBIN 11.3 g/dL (12.0-16.0); LYMPHOCYTES # (AUTO) 1.6 10^3/uL (1.5-3.5); LYMPHOCYTES % (AUTO) 18.3 %; MEAN CORPUSCULAR HEMOGLOBIN 31.7 pg (27.0-31.0); MEAN CORPUSCULAR HGB CONC 32.4 g/dL (32.0-36.0); MEAN CORPUSCULAR VOLUME 97.8 fL (81.0-99.0); MEAN PLATELET VOLUME 10.8 fL (7.9-10.8); MONOCYTES # (AUTO) 0.7 10^3/uL (0.0-1.0); MONOCYTES % (AUTO) 8.3 %; NEUTROPHILS # (AUTO) 6.2 10^3/uL (1.5-6.6); PLT - PLATELET COUNT 191 10^3/uL (130-450); RED BLOOD COUNT 3.57 10^6/uL (4.20-5.40); RED CELL DISTRIBUTION WIDTH 13.6 % (12.0-15.0); WHITE BLOOD COUNT 8.7 x10^3/uL (4.8-10.8)
[2020-11-24] MEDS ORDERED: OXYTOCIN/SODIUM CHLORIDE 500 ML IV SCH (13:05)
[2020-11-24] MEDS: LACTATED RINGERS 1,000 ML IV SCH ×3 (14:03→17:36)
[2020-11-24] MEDS ORDERED: fentaNYL 100 MCG/2 ML VIAL ONE (14:36)
[2020-11-24] MEDS ORDERED: BUPIVACAINE 0.25% PF 10 ML VIAL ONE (14:36)
[2020-11-24] MEDS ORDERED: ROPIVACAINE 0.2% 200 MG/100 ML BAG EP ONE (14:37)
--- NOTE | 2020-11-24 15:18 | ANESTHESIA ---
Pre-Anesthesia VS, & Labs - Diagnosis active labor - Procedure labor epidural Vital Signs: Temp Pulse Resp BP Pulse Ox 36.7 C 88 17 93/62 99 11/24/20 13:04 11/24/20 13:00 11/24/20 13:00 11/24/20 13:00 11/24/20 13:00 Height: 5 ft 2 in Weight (kg): 76.657 kg Body Mass Index: 30.9 BMI Classification: Obese - NPO >8 hours - Is Patient ?: No - Lab Results Current Lab Results: Laboratory Tests 11/24/20 12:44: Blood Type O POSITIVE, Antibody Screen NEGATIVE 11/24/20 12:44: WBC 8.7, RBC 3.57 L, Hgb 11.3 L, Hct 34.9 L, MCV 97.8, MCH 31.7 H, MCHC 32.4, RDW 13.6, Plt Count 191, MPV 10.8, Neut # (Auto) 6.2, Lymph # (Auto) 1.6, [place] # (Auto) 0.7, Eos # (Auto) 0.1, Baso # (Auto) 0.0, Absolute Nucleated RBC 0.00, Nucleated RBC % 0.0 Lab results reviewed: Yes Fish Bones: 11/24/20 12:44 Home Medications and Allergies Active Medications Carboprost Tromethamine (Carboprost Tromethamine 250 Mcg/Ml Amp) 250 mcg IM Q15M PRN PRN Reason: Step 4: Hemorrhage protocol Stop: 11/29/20 12:17 Lactated Ringer's (Lr) 1,000 mls @ 150 mls/hr IV .Q6H40M ALANA Last Admin: 11/24/20 14:35 Dose: 150 mls/hr Documented by: Oxytocin/Sodium Chloride (Pitocin/Sodium Chloride) 500 mls @ 999 mls/hr IV PRN PRN; Protocol PRN Reason: POST- HEMORR PREVENTION Stop: 11/29/20 12:17 Tranexamic Acid (Tranexamic 1,000 Mg/100ml-Nacl) 1,000 mg in 100 mls @ 600 ml s/hr IV .ONCE PRN PRN Reason: EBL >1200mL and within 3hr Stop: 11/29/20 12:17 Oxytocin/Sodium Chloride (Pitocin/Sodium Chloride) 500 mls @ 1 mls/hr IV TITR ALANA; Protocol Lidocaine HCl (Lidocaine-Mpf 1% 30 Ml Vial) 30 ml ID .ONCE PRN PRN Reason: PERINEAL REPAIR Stop: 11/29/20 12:17 Methylergonovine Maleate (Methylergonovine 0.2 Mg/Ml Vial) 0.2 mg IM .ONCE PRN PRN Reason: Step 2: Hemorrhage protocol Stop: 11/29/20 12:17 Misoprostol (Misoprostol 200 Mcg Tablet) 800 mcg BC .ONCE PRN PRN Reason: Step 3: Hemorrhage protocol Stop: 11/29/20 12:17 Ondansetron HCl (Ondansetron 4 Mg/2 Ml Vial) 4 mg IVP Q4H PRN PRN Reason: Nausea / Vomiting Last Admin: 11/24/20 13:53 Dose: 4 mg Documented by: Oxytocin (Oxytocin 10 Unit/Ml Vial) 10 unit IM .ONCE PRN PRN Reason: Step one: If no IV access Stop: 11/29/20 12:17 Sodium Chloride (Sodium Chloride Flush 0.9% 10 Ml Syringe) 10 ml IVP PRN PRN PRN Reason: NEEDED PER PROVIDER ORDERS Last Admin: 11/24/20 14:00 Dose: 10 ml Documented by: Sodium Chloride (Sodium Chloride Flush 0.9% 10 Ml Syringe) 10 ml IVP 0100,0900,1700 [facility] Last Admin: 11/24/20 12:50 Dose: 10 ml Documented by: Ibuprofen [Motrin] 800 mg PO Q6H PRN 04/18/18 Allergies/Adverse Reactions: Allergies Allergy/AdvReac Type Severity Reaction Status Date / Time No Known Drug Allergies Allergy Verified 10/05/15 22:04 Anes History & Medical History - Anesthetic History Anesthesia Complications: reports: No previous complications Family history of Anesthesia Complications: Denies Family history of Malignant Hyperthermia: Denies - Medical History Cardiovascular: reports: None Pulmonary: reports: Asthma Gastrointestinal: reports: None Urinary: reports: None Neuro: reports: None Musculoskeletal: reports: None Endocrine/Autoimmune: reports: None Blood Disorders: reports: Anemia Skin: reports: Eczema Smoking Status: Never smoker - Surgical History Eyes Ears Nose Throat (EENT): reports: Other Dermatologic: reports: Other - Obstetrical History : 3 Parity: 1 Events: reports: None Complications: reports: None Exam General: Alert, Oriented x3, Cooperative, No acute distress Dental: WNL Mouth Openin Fingerbreadth Neck Mobility: Normal Mallampati classification: II Respiratory: Lungs clear, Normal breath sounds, No respiratory distress, No accessory muscle use Cardiovascular: Regular rate, Normal S1, Normal S2, No murmurs Plan Anesthesia Type: Epidural Consent for Procedure(s) Verified and Reviewed: Yes Code Status: Attempt Resuscitation ASA classification: 2-Mild systemic disease Is this case an emergency?: No
[2020-11-24] MEDS ORDERED: ePHEDrine 50 MG/ML VIAL IVP PRN (15:20)
[2020-11-24] MEDS ORDERED: METOCLOPRAMIDE 10 MG/2 ML VIAL IVP PRN (15:20)
[2020-11-24] MEDS ORDERED: NALOXONE 0.4 MG/ML VIAL IVP PRN (15:20)
[2020-11-24] MEDS ORDERED: ROPIVACAINE 0.2% 200 MG/100 ML BAG EP PRN ×2 (15:20→19:15)
[2020-11-24] MEDS ORDERED: NALBUPHINE 10 MG/ML AMP IVP PRN (15:20)
[2020-11-24] MEDS ORDERED: diphenhydrAMINE INJ 50 MG/ML VIAL IVP PRN (15:20)
[2020-11-24] MEDS ORDERED: SODIUM CHLORIDE FLUSH 0.9% 10 ML SYRINGE IVP SCH (17:00)
--- NOTE | 2020-11-24 17:00 | PROVIDER PROGRESS NOTE ---
Labor Progress Note - Uterine Monitoring Uterine Monitoring Mode: positive: External toco Contraction Frequency (min/apart): 2-6 Contraction Intensity: positive: Mild to moderate Uterine Resting Tone: positive: Soft - Monitoring Monitor Mode: positive: External ultrasound Heart Rate Baseline: 140 Heart Rate Variability: positive: Moderate (6-25 bmp) Accelerations: positive: Present, 15x15 Decelerations: positive: None Strip Review: positive: Category I - Vaginal Exam Dilation (in cm): 5 Effacement (%): 80 Station: -2 Cervical Position: Midposition - Labor Progress Note Labor Progress Note/Additional Text: S: Feeling comfortable with her epidural. Her partner is supportive at the bedside. She denies questions or concerns at this time and states she is feeling well. O: SVE 5/80/-2, midposition. Vertex. Pitocin @5mU/mL A: 25yo @ 39.5wks gestation by 6.5wk U/S Early labor PROM GBS neg FHR Category I P: Continue active management. Continuous monitoring. Continue pitocin for IOL with titration per protocol. Maintain epidural for pain management. Anticipate
[2020-11-24] MEDS ORDERED: LIDOCAINE 2%-EPI 1:100000 20 ML MDV ONE (19:02)
[2020-11-24] MEDS ORDERED: LIDOCAINE-PF 2% 10 ML AMP SUBQ ONE (19:03)
--- NOTE | 2020-11-24 19:13 | CONSULTATION NOTE ---
Consultation Report: Called by OB RN. Pt having 8/10 pain, suprapubic pain. Level assessed to be around umbilicus. Gave Lidocaine 2% 5 mL. Increased basal rate to 10 mL q 50 min.
[2020-11-24] MEDS ORDERED: WITCH HAZEL/GLYCERIN 1 PAD TOP PRN (20:53)
[2020-11-24] MEDS ORDERED: HYDROCORTISONE 1% CREAM 28 GM TUBE PR PRN (20:53)
--- NOTE | 2020-11-24 21:03 | DELIVERY NOTE ---
Delivery Note - Labor Labor: positive: Augmented by oxytocin - Delivery Method Delivery Method: positive: Spontaneous vaginal delivery - Presentation Presentation: positive: Vertex, FIONA - right occiput anterior - Nuchal Cord Nuchal Cord: positive: Present, Reduced - Amniotic Fluid Description Amniotic Fluid Description: positive: Clear - Laceration Laceration: positive: 1st degree, Perineal - Suture Suture Type: positive: Vicryl Suture Size: positive: 4-0 - Delivery Outcome Delivery Outcome: positive: Livebirth - Cable : positive: Placed in direct skin contact with mother, Bulb syringe, Stimulated, Warmed, Hunt used Cable sex: positive: Male - Cord Cord: positive: 3 vessels - Placenta Placenta: positive: Intact, Spontaneous - Estimated Blood Loss Estimated Blood Loss (in cc): 150 - Post Delivery Events Post Delivery Events: positive: No post delivery events - Delivery Comments (Free Text/Narrative) Delivery Comments (Free Text/Narrative): Labor: This 25yo @ 39.5wks gestation by 6.5wk U/S presented to [facility] on 11/24/2020 @ approximately 1215 following spontaneously grossly ruptured membranes at 1015 this morning which was noted to be clear. SVE 3/80/-3, midposition and vertex with continued leakage of clear vaginal fluid and +nitrizine. FHR pattern demonstrate Category I pattern throughout labor. Pitocin initiated for labor augmentation for a maximum infusion rate of 5mU/mL. Epidural placed per maternal request. Pt progressed to c/c/+2 @ 2000 with onset of spontaneous pushing at 2018. : Normal of viable male infant 11/24/2020 @ 2024. Nuchal cord x 1 easily reduced. Compound right hand. The was placed on maternal abdomen, stimulated, dried, and placed skin to skin. Apgars were 8/9 at 1 and 5 minutes respectively. Pitocin administered via IV for hemostasis. The umbilical cord was allowed to stop pulsating at which time it was doubly clamped by CNM and cut by FOB. 3VC. Cord blood was obtained. Fundal massage and gentle cord traction applied for active management of the third stage. Placenta delivered spontaneously and intact at 2031. EBL 150mL. Fourth stage: Uterine fundus firm and there is no excessive bleeding. The perineum, vagina, and cervix were inspected and noted to have a 1st degree perineal laceration which was repaired using a 4-0 vicryl on an SH needle in standard fashion and under sterile conditions. Vaginal examination following repair was completed. Tissues well approximated. initiated. Family bonding well. Both mother and baby were left in stable condition.
[2020-11-24] MEDS: DOCUSATE SODIUM 100 MG CAPSULE PO SCH (22:21)
[2020-11-24] MEDS: IBUPROFEN 800 MG TABLET PO SCH (22:21)
[2020-11-25] MEDS: ACETAMINOPHEN 500 MG TABLET PO SCH ×4 (00:51→19:56)
[2020-11-25] MEDS: IBUPROFEN 800 MG TABLET PO SCH ×4 (05:33→19:55)
[2020-11-25] MEDS: DOCUSATE SODIUM 100 MG CAPSULE PO SCH ×2 (10:55→19:56)
--- NOTE | 2020-11-25 12:22 | PROVIDER PROGRESS NOTE ---
Subjective - Subjective Subjective: S: Bonding well with baby. without difficulty. Bleeding decreased and is light. Pain is well controlled with oral medications. Mood is good. O: BP 104/69, T 36.9, HR 68, RR 18 Heart RRR w/o M/G/R, lungs CTAB, abdomen soft and nontender with fundus firm at U, perineum intact, repair without edema, light lochia rubra, bilateral LE's trace edema. A: 25yo -->P2 PPD#1 s/p TSVD viable male 1st degree perineal laceration intact P: Pt wishes to be discharged home today however toys inspector declines to discharge baby. Will hold discharge until tomorrow morning if baby is not discharged at 24hrs. Reviewed routine care and medications and when to present. Encouraged continuation of PNV while . Encouraged continuation of ibuprofen and tylenol OTC as needed for pain management. F/u in 1 week for routine pp care or sooner PRN. Pt verbalized understanding and agrees to above plan. She denies further questions or concerns at this time. Objective - Vital Signs/Intake & Output Vital Signs: Vital Signs x48h Temp Pulse Resp BP Pulse Ox 11/25/20 07:48 36.9 C 68 18 104/69 99 Intake & Output: Intake & Output 11/22/20 11/23/20 11/24/20 11/25/20 23:59 23:59 23:59 23:59 Intake Total 1605.000 340 Output Total 650 600 Balance 955.000 -260 - Lab Results Fish Bones: 11/24/20 12:44 Other Labs: Lab Results x24hrs 11/24/20 11/24/20 Range/Units 12:44 12:44 WBC 8.7 (4.8-10.8) x10^3/uL RBC 3.57 L (4.20-5.40) 10^6/uL Hgb 11.3 L (12.0-16.0) g/dL Hct 34.9 L (37.0-47.0) % MCV 97.8 (81.0-99.0) fL MCH 31.7 H (27.0-31.0) pg MCHC 32.4 (32.0-36.0) g/dL RDW 13.6 (12.0-15.0) % Plt Count 191 (130-450) 10^3/uL MPV 10.8 (7.9-10.8) fL Neut # (Auto) 6.2 (1.5-6.6) 10^3/uL Lymph # (Auto) 1.6 (1.5-3.5) 10^3/uL [place] # (Auto) 0.7 (0.0-1.0) 10^3/uL Eos # (Auto) 0.1 (0.0-0.7) 10^3/uL Baso # (Auto) 0.0 (0.0-0.1) 10^3/uL Absolute Nucleated RBC 0.00 x10^3/uL Nucleated RBC % 0.0 /100WBC Blood Type O POSITIVE Antibody Screen NEGATIVE
[2020-11-26] MEDS: ACETAMINOPHEN 500 MG TABLET PO SCH (04:10)
[2020-11-26] MEDS: IBUPROFEN 800 MG TABLET PO SCH ×2 (04:10→10:39)
[2020-11-26 08:33] VITALS: BP 111/65
[2020-11-26] MEDS: DOCUSATE SODIUM 100 MG CAPSULE PO SCH (08:42)
--- NOTE | 2020-11-26 09:51 | Discharge Plan ---
Discharge Plan Problem Reviewed?: Yes Disposition: Home, Self Care Condition: Good Diet: Regular Activity Restrictions: No Restrictions Shower Restrictions: No Driving Restrictions: No Weight Bearing: Full Weight No Smoking: If you smoke, Please STOP! Call for help. Follow-up with: Amber Mcintyre CNM, ARNP [Provider Admit Priv/Credential] -
--- NOTE | 2020-11-26 10:01 | DISCHARGE SUMMARY ---
Discharge Summary Condition at Discharge: Good Discharge Disposition: 01 Home, Self Care - HOSPITAL COURSE Hospital Course: Date of Admission: 11/24/2020 Date of Discharge: 11/26/2020 Diagnosis on Admission: 1. 25yo @ 39.5wks gestation by 6.5wk U/S 2. PROM 3. GBS neg 4. FHR Category I Diagnosis on Discharge: 1. 25yo PPD#2 s/p TSVD viable male 2. 1st degree perineal laceration - intact 3. 4. Normal recovery Brief History: She is a patient of [facility] who presented on 11/24/2020 with grossly ruptured membranes. SVE 3/80/-3 and vertex. FHR pattern demonstrated Category I pattern throughout labor. Pitocin administered for labor augmentation with a maximum infusion rate of 5mU/mL. Pt progressed to spontaneously deliver a viable male on 11/24/2020 @ 2024. Apgars were 8/9 at 1 and 5 minutes respectively. EBL 150mL. 1st degree perineal laceration repaired in standard fashion and under sterile conditions. She has been doing well in her course. She is ambulating and tolerating a regular diet. She is urinating without difficulty and her lochia is normal. She is with some bilateral nipple discomfort and machine rebuilder present to evaluate for tongue and lip tie. She is bonding w ell with her baby and she desires to be discharged home today. She will be discharged home today on day #2 with instructions to continue taking her vitamin while and to continue taking ibuprofen and tylenol OTC as needed for pain management. She intends to f/u with myself at [facility] in 1 week or sooner if needed. She has been given precautions to call if she has any worsening fevers, chills, abdominal pain, increased vaginal bleeding or foul smelling vaginal lochia. She verbalized understanding and agrees to above plan. She denies further questions or concerns at this time. Physical Exam: Heart RRR w/o M/G/R, lungs CTAB, abdomen soft and nontender with fundus firm at U-1, light lochia rubra, bilateral LE's trace edema. - ALLERGIES Allergies/Adverse Reactions: Allergies Allergy/AdvReac Type Severity Reaction Status Date / Time No Known Drug Allergies Allergy Verified 11/24/20 19:32 - MEDICATIONS Home Medications: Ambulatory Orders Medication Instructions Recorded Confirmed Ibuprofen [Motrin] 800 mg PO Q6H PRN 04/18/18 04/19/18 - LABS Result Diagrams: 11/24/20 12:44
== END 2020-11-26 11:20 | disposition home or self-care (01) | DRG 807 ==
LOC: WFO 11:47 → FBP 11:49 → WFO 12:14 → FBP 12:16
PROVIDERS: ADMIT Nurse Practitioner Obstetrics & Gynecology; ATTEND Nurse Practitioner Obstetrics & Gynecology
PROC: 10E0XZZ Delivery of Products of Conception, External Approach (ICD-10-PCS; principal; 2020-11-24)
PROC: 0HQ9XZZ Repair Perineum Skin, External Approach (ICD-10-PCS; 2020-11-24)
DX: O42.02 Full-term premature rupture of membranes, onset of labor within 24 hours of rupture (principal); Z37.0 Single live birth; O69.89X0 Labor and delivery complicated by other cord complications, not applicable or unspecified; Z3A.39 39 weeks gestation of pregnancy; O70.0 First degree perineal laceration during delivery; O99.214 Obesity complicating childbirth; Z67.40 Type O blood, Rh positive
CPT/HCPCS: 36415; 85025; 86850; 86900; 86901; 99215; A9270; J7120

== ENCOUNTER 2020-12-21 10:34 | Outpatient (CLI) | payer MEDICAID | END 2020-12-21 11:40 | disposition home or self-care (01) | LOC: WFO 10:34 → OBS 10:36 → WFO 11:40 | PROVIDERS: ATTEND Obstetrics & Gynecology | DX: Z39.1 Encounter for care and examination of lactating mother (principal) ==

== ENCOUNTER 2023-01-17 18:00 | Outpatient (CLI) | payer MEDICAID ==
[2023-01-18 21:09] LABS: BACTERIAL VAGINOSIS DNA NEGATIVE (NEGATIVE); CANDIDA GLABRATA DNA NEGATIVE (NEGATIVE); CANDIDA GROUP DNA POSITIVE (NEGATIVE); CANDIDA KRUSEI DNA NEGATIVE (NEGATIVE); TRICHOMONAS VAGINALIS DNA NEGATIVE (NEGATIVE)
[2023-01-19 07:10] LABS: HSV 1 IGG TYPE SPEC <0.91 index (0.00-0.90); HSV 2 IGG TYPE SPEC <0.91 index (0.00-0.90)
== END 2023-01-17 18:15 | disposition home or self-care (01) ==
LOC: LAB.N 18:00
PROVIDERS: ATTEND Family Medicine
DX: N76.0 Acute vaginitis (principal)
CPT/HCPCS: 81514; 86695; 86696